=== PATIENT | male | born 1955 | race Asian ===

== ENCOUNTER 2021-03-19 09:25 | Outpatient (REF) | payer MEDICARE, MEDICAID, SELFPAY ==
--- NOTE | ~2021-03-19 | US_ITS ---
EXAMINATION: US RETROPERITONEAL LIMITED (RENAL ONLY) CLINICAL INFORMATION: Chronic kidney disease. COMPARISON: None TECHNIQUE: Real-time imaging of the kidneys. FINDINGS: RIGHT KIDNEY: 9.0 x 5.2 x 7.3 cm (SAG x AP x TRV). The kidney is normal in size, contour, and echogenicity. Renal cortical thickness is normal. No hydronephrosis. Simple right midpole cyst measuring 1.2 x 1.2 x 1.4 cm. Lower pole stone versus vascular artifact measuring up to 0.3 cm. LEFT KIDNEY: 9.2 x 4.0 x 5.3 cm (SAG x AP x TRV). The kidney is normal in size, contour, and echogenicity. Renal cortical thickness is normal. No calculi or focal parenchymal lesions. No hydronephrosis. US/US renal BI IMPRESSION: Right lower pole renal stone versus vascular artifact measuring 0.3 cm. No left-sided renal stone. No hydronephrosis. Simple right midpole renal cyst measuring 1.4 cm. Findings are not clinically significant and no dedicated follow-up imaging is recommended.
== END 2021-03-19 09:26 | disposition home or self-care (01) ==
LOC: HO.US 09:25
PROVIDERS: PCP Internal Medicine; Visit Provider Internal Medicine Nephrology
DX: E11.22 Type 2 diabetes mellitus with diabetic chronic kidney disease (principal); N18.9 Chronic kidney disease, unspecified
CPT/HCPCS: 76775

== ENCOUNTER → 2022-02-17 15:12 | Outpatient (BNVA) | payer MEDICARE, MEDICAID, SELFPAY | PROVIDERS: PCP Internal Medicine; Visit Provider Surgery | DX: R19.00 Intra-abdominal and pelvic swelling, mass and lump, unspecified site (principal) | CPT/HCPCS: 99202 ==

== ENCOUNTER 2022-02-24 14:01 | Outpatient (REF) | payer MEDICARE, OTHER, SELFPAY ==
--- NOTE | ~2022-02-24 | CT_ITS ---
EXAMINATION: CT ABDOMEN AND PELVIS WITHOUT CONTRAST CLINICAL INFORMATION: Abdominopelvic swelling and palpable mass/lump. COMPARISON: Renal ultrasound dated 03/19/2021. TECHNIQUE: Multidetector volumetric imaging was performed from the superior aspect of the liver through the pubic symphysis. Sagittal and coronal reformatted images were obtained on the technologist's workstation. This CT examination was performed using dose optimization techniques as appropriate, variously including the following: *Automated exposure control *Adjustment of mA and/or kV according to patient size (this includes techniques or standardized protocols for targeted exams where dose is matched to indication/reason for exam; i.e. extremities or head) *Use of iterative reconstruction technique DLP: 391 mGy-cm FINDINGS: LUNG BASES: The visualized lung bases are unremarkable. LIVER, GALLBLADDER, AND BILIARY TREE: The liver is normal in size, shape, and attenuation. No focal hepatic lesion or biliary ductal dilatation is present. The gallbladder is unremarkable with no evidence of radiopaque gallstones, gallbladder wall thickening, or obvious pericholecystic inflammatory changes. PANCREAS: Unremarkable. SPLEEN: Unremarkable. ADRENAL GLANDS: Unremarkable. KIDNEYS AND URETERS: The kidneys are normal in size, shape, and attenuation. At the interpolar aspect of the right kidney (3:29), a 1.3 cm benign, simple cyst is redemonstrated. No imaging follow-up is recommended. No perinephric stranding. At the lower pole of the right kidney, a 7 mm ovoid, nonobstructing calculus is seen. No further urinary calculus is seen, and there is no obstructive uropathy. BLADDER: Unremarkable. GASTROINTESTINAL TRACT: The stomach is distended with ingested contents. The small and large bowel are unremarkable. The appendix is unremarkable. ABDOMINAL WALL: There is a tiny fat-containing umbilical hernia. There is a very small fat-containing left inguinal hernia. LYMPH NODES: Normal. VASCULAR: There is mild aortic atherosclerotic calcification. No abdominal aortic aneurysm is seen. PELVIC VISCERA: Unremarkable. OSSEOUS STRUCTURES: There is multi-level marked lumbar degenerative disc disease and spondylosis. There is a very mild L1 anterior wedge compression fracture. No acute or aggressive osseous abnormality is seen. CT/CT abdomen pelvis wo con IMPRESSION: 1. A 7 mm nonobstructing right renal calculus is seen. There is no further urinary calculus. No obstructive uropathy is noted bilaterally. 2. A simple right renal cyst is incidentally noted. No imaging follow-up is recommended. 3. There is a tiny fat-containing umbilical hernia, and a very small fat-containing left inguinal hernia is seen. 4. There is no abdominopelvic mass, free fluid or lymphadenopathy. 5. There is no bowel obstruction, free intraperitoneal air or abscess. No appendicitis or diverticulitis is seen. 6. There is multi-level lumbar degenerative change. An age-indeterminate very mild L1 anterior wedge compression fracture is seen. There is no aggressive osseous lesion. Fleischner guidelines were followed.
[2022-02-24] MEDS: Barium Sulfate Oral (Berry) 450 ML ORAL.SUSP 900 ML PO (16:57)
== END 2022-02-24 14:02 | disposition home or self-care (01) ==
LOC: HO.CT 14:01
PROVIDERS: Visit Provider Surgery
DX: R19.00 Intra-abdominal and pelvic swelling, mass and lump, unspecified site (principal)
CPT/HCPCS: 74176

== ENCOUNTER → 2022-03-09 14:51 | Outpatient (BNVA) | payer MEDICARE, MEDICAID, SELFPAY | PROVIDERS: PCP Internal Medicine; Visit Provider Surgery | DX: K40.90 Unilateral inguinal hernia, without obstruction or gangrene, not specified as recurrent (principal) | CPT/HCPCS: 99212 ==

== ENCOUNTER 2022-05-21 06:57 | Day surgery (SDC) | payer MEDICARE, MEDICAID, SELFPAY ==
--- NOTE | 2022-05-20 09:06 | P.CONAN_ITS ---
Documented by User: Sulma Hernandez NP 05/20/22 09:07 HPI - Anesthesia Eval Consult details Narrative: 67yo M for Left Hernia Repair Inguinal PMFSH Active Problems Active Problems: All Active Problems (Updated 03/09/22 @ 15:09 by Paul David MD) Left inguinal hernia (Acute) Hyperlipidemia (Acute) Hypertension (Acute) Diabetes mellitus (Acute) Abdominal wall bulge (Acute) Past Medical History Medical History Abdominal wall bulge Diabetes mellitus Hyperlipidemia Hypertension Left inguinal hernia Surgical History Surgical History No pertinent past surgical history Social History Social History Alcohol intake: current Alcohol intake frequency: holidays/special occasions only Patient Tobacco Use Status: Never used Tobacco Advance Directives: No Advance Directives Information Provided: Yes Meds Allergies Allergy/AdvReac Type Severity Reaction Status Date / Time No Known Allergies Allergy Verified 03/09/22 14:58 Home Medications Medication Instructions Recorded Confirmed Last Taken Type amlodipine 5 mg tablet 5 mg PO DAILY 02/17/22 03/09/22 05/21/22 History dulaglutide 1.5 mg/0.5 mL mg subcut 02/17/22 03/09/22 Unknown History subcutaneous pen injector (Trulicity) glipizide 10 mg tablet 10 mg PO DAILY 02/17/22 03/09/22 Unknown History metformin 1,000 mg tablet 1,000 mg PO BID 02/17/22 03/09/22 05/21/22 History pravastatin 20 mg tablet 20 mg PO DAILY 02/17/22 03/09/22 Unknown History Exam Exam Date and Time: May 20, [id number] Assessment and Plan Assessment Anesthesia Assessment: Chart Reviewed Documented by User: Huy Carrillo MD 05/21/22 07:22 PMFSH Past Medical History Medical History Abdominal wall bulge Diabetes mellitus Hyperlipidemia Hypertension Left inguinal hernia Family History Family history of problems with anesthesia: No Surgical History Surgical History No pertinent past surgical history History of Problems with Anesthesia: No Social History Social History Alcohol intake: current Alcohol intake frequency: holidays/special occasions on ly Patient Tobacco Use Status: Never used Tobacco Advance Directives: No Advance Directives Information Provided: Yes Meds Allergies Allergy/AdvReac Type Severity Reaction Status Date / Time No Known Allergies Allergy Verified 03/09/22 14:58 Home Medications Medication Instructions Recorded Confirmed Last Taken Type amlodipine 5 mg tablet 5 mg PO DAILY 02/17/22 03/09/22 05/21/22 History dulaglutide 1.5 mg/0.5 mL mg subcut 02/17/22 03/09/22 Unknown History subcutaneous pen injector (Trulicity) glipizide 10 mg tablet 10 mg PO DAILY 02/17/22 03/09/22 Unknown History metformin 1,000 mg tablet 1,000 mg PO BID 02/17/22 03/09/22 05/21/22 History pravastatin 20 mg tablet 20 mg PO DAILY 02/17/22 03/09/22 Unknown History Exam Airway Mallampati Class: II TM Dist: >3cm Neck ROM: Full Denture: Upper and Lower Loose/Missing/Broken Teeth: Yes Heart: [id number] Lungs: cta b/l Assessment and Plan Assessment Anesthesia Assessment: Anesthesia Plan Discussed Final Anesthetic Review Family History of Problems with Anesthesia: No History of Problems with Anesthesia: No NPO: Yes ASA Class: III Final Preanesthetic Review: No Changes in Pt Med Stat, Meds/Allgs Chart Reviewed, Consent Obtained/Reviewed and Anes Risks/Benef Reviewed Patient Risk: Intermediate Procedure Risk: Intermediate Assessment/Block/Sedation in SS: Assess/Block/Sedation-SS Anesthetic Plan Anesthetic Plan: GA and Agree w/ Assess. and Plan Disposition: Standard PACU
[2022-05-21 07:29] VITALS: BMI 19.5
[2022-05-21 07:32] LABS: Glucose, Whole Blood 126 mg/dL (60-115)
[2022-05-21 07:34] VITALS: BP 146/89; PULSE 79; RESP 18; TEMP 36.6; O2SAT 99
[2022-05-21] MEDS: Lactated Ringers 1,000 ML 100 ML IVCONT (07:46)
--- NOTE | 2022-05-21 09:22 | W.PM.OPN ---
Operative Note Operative Note Date of Service: 05/21/22 Narrative: Preop diagnosis: Left inguinal hernia Postop diagnosis: Left inguinal hernia, direct Procedure: Repair of a left inguinal hernia with mesh Surgeon: Paul David MD access services assistant: ALEYDA Lion Patient is a 67-year-old male with a reducible mass on the left groin consistent with left inguinal hernia. This was also seen on a CT scan. He understood the technique of repair with mesh. He was aware of the risks, benefits, and alternatives She was brought to the operating room and placed supine under general anesthesia via laryngeal mask airway. The left groin was prepped and draped in the usual sterile fashion. A surgical time-out was done. The patient received cefazolin 2 g IV preoperatively I infiltrated the planned line of incision with lidocaine 1%. I made a short incision on the skin along an imaginary line from the superior iliac spine to the pubic ramus using blade 15. This carried down through the full-thickness of the skin subcutaneous fat down to the fascia. The external oblique neurosis with therefore define. There was note of a fat containing hernia. I made a short incision on the external oblique aponeurosis using blade 15 and extended inferomedially to connect with the external ring using an open tipped pair of scissors. The inguinal canal was therefore entered. I applied graspers on the divided fascial edge. I dissected the underside to create space for the mesh. I then did blunt dissection of the spermatic cord and its contents until Iwas able to pass a [place] drain around this. This Shruthi drain was used for retraction. I identified the vas deferens and its accompanying vessels. I saw a hernia at the floor of the canal which was a direct hernia. This was fat containing. I carefully dissected this down to the floor to reduces. I used a medium-sized plug to reinforce this direct hernia. This was secured with Prolene 2 sutures to the shelving edge of the inguinal Ligament laterally, the internal oblique superiorly andmedially using the inner leaves of the mesh as well. I then reinforced the entire floor of the canal with a keyhole mesh. The tails of the mesh were passed around the cord at the level of the internal ring and secured together Prolene 2 sutures. I secured this mesh flat on the floor of the canal to the shelving edge of the inguinal and laterally, the inferior oblique medially and superiorly, and the pubic ramus inferomedially. I irrigated the area of dissection. I observed for hemostasis. I removed the Shruthi drain. I closed the external oblique aponeurosis were running Dexon 2-0 stitch to re-create the external ring. The subcutaneous layer was reapposed with Dexon 3-0 interrupted sutures. Skin closure was achieved with Dexon 4-0 subcuticular running stitch. Steri-Strips and dressings were applied. The area was infiltrated with Marcaine 0.5% for postop analgesia. The procedure was completed. The patient tolerated procedure well. There were no immediate complications. Estimated blood loss was about 5 cc . The patient was extubated without difficulty and transferred to the recovery with stable vital signs.
[2022-05-21 09:36] VITALS: BP 140/85; PULSE 82; RESP 9; TEMP 36.1; O2SAT 100
[2022-05-21 09:41] VITALS: BP 153/88; PULSE 78; RESP 9; O2SAT 100
[2022-05-21 09:46] VITALS: BP 150/81; PULSE 77; RESP 11; O2SAT 100
[2022-05-21 09:51] VITALS: BP 153/86; PULSE 79; RESP 12; O2SAT 100
[2022-05-21 10:06] VITALS: BP 143/83; PULSE 80; RESP 16; TEMP 36.2; O2SAT 99
== END 2022-05-21 11:08 | disposition home or self-care (01) ==
PROVIDERS: PCP Internal Medicine; Visit Provider Surgery
PROC: (CPT 49505; principal; 2022-05-21 08:20)
DX: K40.90 Unilateral inguinal hernia, without obstruction or gangrene, not specified as recurrent (principal); I10 Essential (primary) hypertension; E78.5 Hyperlipidemia, unspecified; E11.9 Type 2 diabetes mellitus without complications; Z79.84 Long term (current) use of oral hypoglycemic drugs; Z79.899 Other long term (current) drug therapy
CPT/HCPCS: 49505; 82947; C1781; J0690; J1885; J2250; J2795; J3010